=== PATIENT | female | born 1970 | race Caucasian/White ===

== ENCOUNTER → 2021-09-26 11:44 | Outpatient (BNVA) | payer BC, MEDICAID, SELFPAY | PROVIDERS: Visit Provider Family Medicine | DX: F32.A Depression, unspecified (principal); G47.00 Insomnia, unspecified; G89.4 Chronic pain syndrome; I10 Essential (primary) hypertension; E78.5 Hyperlipidemia, unspecified; K21.9 Gastro-esophageal reflux disease without esophagitis; J30.2 Other seasonal allergic rhinitis; E03.9 Hypothyroidism, unspecified; M62.838 Other muscle spasm | CPT/HCPCS: 80053; 80061; 84443 ==

== ENCOUNTER → 2022-01-03 13:41 | Outpatient (BNVA) | payer BC, MEDICAID, SELFPAY | PROVIDERS: PCP Family Medicine; Visit Provider Family Medicine | DX: E78.5 Hyperlipidemia, unspecified (principal); E03.9 Hypothyroidism, unspecified; Z51.81 Encounter for therapeutic drug level monitoring; F33.1 Major depressive disorder, recurrent, moderate; G47.00 Insomnia, unspecified; G89.4 Chronic pain syndrome; J30.2 Other seasonal allergic rhinitis; I10 Essential (primary) hypertension; K21.9 Gastro-esophageal reflux disease without esophagitis; M62.838 Other muscle spasm; F51.01 Primary insomnia; K06.9 Disorder of gingiva and edentulous alveolar ridge, unspecified | CPT/HCPCS: 80053; 80061; 84443; 85025 ==

== ENCOUNTER → 2022-07-24 11:15 | Outpatient (BNVA) | payer BC, MEDICAID, SELFPAY | PROVIDERS: PCP Family Medicine; Visit Provider Family Medicine | DX: I12.9 Hypertensive chronic kidney disease with stage 1 through stage 4 chronic kidney disease, or unspecified chronic kidney disease (principal); N18.9 Chronic kidney disease, unspecified | CPT/HCPCS: 80048; 85025 ==

== ENCOUNTER → 2023-01-21 11:08 | Outpatient (BNVA) | payer MEDICAID, SELFPAY | PROVIDERS: PCP Family Medicine; Visit Provider Family Medicine | DX: E03.9 Hypothyroidism, unspecified (principal); I10 Essential (primary) hypertension; E78.5 Hyperlipidemia, unspecified | CPT/HCPCS: 80048; 80061; 84439; 84443; 84481 ==

== ENCOUNTER → 2023-07-11 10:52 | Outpatient (BNVA) | payer OTHER, SELFPAY | PROVIDERS: PCP Family Medicine; Visit Provider Family Medicine | DX: F32.A Depression, unspecified (principal); E78.5 Hyperlipidemia, unspecified; M62.838 Other muscle spasm; I10 Essential (primary) hypertension; K21.9 Gastro-esophageal reflux disease without esophagitis; J30.2 Other seasonal allergic rhinitis; E03.9 Hypothyroidism, unspecified; G47.00 Insomnia, unspecified; G89.4 Chronic pain syndrome; R60.0 Localized edema; F33.1 Major depressive disorder, recurrent, moderate; F51.01 Primary insomnia; N18.31 Chronic kidney disease, stage 3a; Z79.899 Other long term (current) drug therapy | CPT/HCPCS: 80048; 83735; 83880; 84443 ==

== ENCOUNTER → 2024-01-09 11:36 | Outpatient (BNVA) | payer OTHER, SELFPAY | PROVIDERS: PCP Family Medicine; Visit Provider Family Medicine | DX: E03.9 Hypothyroidism, unspecified; I10 Essential (primary) hypertension; E78.2 Mixed hyperlipidemia; N18.31 Chronic kidney disease, stage 3a; Z51.81 Encounter for therapeutic drug level monitoring | CPT/HCPCS: 80053; 80061; 84439; 84443; 84481; 85025 ==

== ENCOUNTER → 2024-03-12 11:36 | Outpatient (BNVA) | payer OTHER, SELFPAY | PROVIDERS: PCP Family Medicine; Visit Provider Family Medicine | DX: I10 Essential (primary) hypertension (principal); E87.6 Hypokalemia | CPT/HCPCS: 80048; 83735 ==

== ENCOUNTER → 2024-06-02 14:23 | Outpatient (BNVA) | payer OTHER, SELFPAY | PROVIDERS: PCP Family Medicine; Visit Provider Family Medicine | DX: Z12.4 Encounter for screening for malignant neoplasm of cervix (principal) | CPT/HCPCS: 87624 ==

== ENCOUNTER → 2024-12-31 10:35 | Outpatient (BNVA) | payer OTHER, SELFPAY | PROVIDERS: PCP Family Medicine; Visit Provider Family Medicine | DX: E87.6 Hypokalemia (principal); E03.9 Hypothyroidism, unspecified; E78.2 Mixed hyperlipidemia | CPT/HCPCS: 80053; 80061; 84439; 84443; 84481 ==